=== PATIENT | male | born 1970 | race Caucasian/White ===

== ENCOUNTER → 2023-01-04 13:10 | Outpatient (BNVA) | payer OTHER, SELFPAY | PROVIDERS: PCP Family Medicine; Visit Provider Nurse Practitioner Family | DX: F41.8 Other specified anxiety disorders (principal) | CPT/HCPCS: 99202 ==

== ENCOUNTER → 2023-02-14 15:13 | Outpatient (BNVA) | payer OTHER, SELFPAY | PROVIDERS: PCP Family Medicine; Visit Provider Urology | DX: Z30.2 Encounter for sterilization (principal); F41.8 Other specified anxiety disorders | CPT/HCPCS: 55250 ==

== ENCOUNTER 2023-05-09 13:25 | Outpatient (AMB) | payer OTHER, SELFPAY ==
--- NOTE | 2023-05-09 13:26 | MHC.OFFVIS ---
Intake Intake Visit Reasons: 3m seman analysis Intake Note: Pt presents to the office to for a 3 month follow up semen analysis Allergies No Known Allergies Allergy (Verified 05/09/23 13:27) HPI HPI Comments History of Present Illness Details German is a pleasant 52 year old male patient of Dr. Lu. He presents to the office today for - vasectomy follow-up Minimal issues post vasectomy No sperm seen on high-powered field evaluation P.r.n. follow-up Vasectomy follow-up The patient presents for vasectomy follow-up.? He is currently single; has a partner but not . He has fathered -?no children The youngest child is - he has no children His partner is aware and permissive for a vasectomy Current form of control is control Current employment as artists and financial service rep. [facility] Surgical History History of hernia repair History of nevus excision Review of Systems Const Denies chills and Denies fever(s) Card Reports no additional complaints and Denies syncope Resp Denies cough GI Denies abdominal pain and Denies heartburn Reports as per HPI and Denies change in libido Neuro Denies syncope Psych Denies change in libido Endo Denies change in libido Physical Exam Const General: cooperative, healthy appearing, comfortable and no acute distress Orientation/consciousness: patient oriented x3 HEENT Face and sinus: Yes normal facial exam Mouth: moist mucous membranes Neck Neck: Yes normal visual inspection, Yes full ROM and Yes trachea midline Chest Chest palpation & inspection: normal inspection of the chest Resp Effort & Inspection: normal respiratory effort, able to speak in complete sentences and no respiratory distress GI Inspection: Yes normal to inspection Back/Spine/Pelvis Cervical Spine: normal cervical lordosis Thoracic/Lumbar Spine: thoracic and lumbar spine normal to inspection Skin General skin exam: no rashes or lesions noted Neuro General: patient oriented x3, gait normal, tone normal and moves all extremities Extrem General: Yes normal to inspection and Yes capillary refill normal Assessment & Plan Assessment & Plan (1) Anxiety about health: Code(s): F41.8 - Other specified anxiety disorders Plan P.r.n. follow-up Patient Instructions: Imaging studies, laboratory and physical exam results were discussed and reviewed in detail. No major barriers to patient understanding were identified. An opportunity to ask questions regarding the treatment plan was provided. All questions were answered. The patient expressed understanding and agreement with the above treatment plan. The patient is aware they should contact our office by phone for worsening of their current condition or the appearance of new urologic symptoms. Compliance is encouraged with any medications and followup testing that is ordered. It is a privilege to participate in the urologic care of your patient. If you have any questions or concerns regarding treatment for the above conditions, or other urologic issues, please do not hesitate to contact me. The office telephone contact is [phone]. This note is constructed using voice recognition software. While every effort has been made to ensure accuracy annealing operator errors may have been included. Yours sincerely, Dr Ashish Gonzalez MD, [facility] - Urology Providers of Expert, Compassionate Care for the Genitourinary System Coding Level of Care Code Est Pt Level 3 (44299) Diagnoses Anxiety about health F41.8
== END 2023-05-09 13:36 | disposition home or self-care (01) ==
PROVIDERS: Visit Provider Urology
DX: F41.8 Other specified anxiety disorders (principal)
CPT/HCPCS: 99213

== ENCOUNTER → 2023-05-09 13:25 | Outpatient (BNVA) | payer OTHER, SELFPAY | PROVIDERS: Visit Provider Urology | DX: Z30.8 Encounter for other contraceptive management (principal); Z98.52 Vasectomy status | CPT/HCPCS: 99212 ==